=== PATIENT | female | born 1935 | race Caucasian/White ===

== ENCOUNTER 2016-06-15 13:46 | Emergency (ER) | payer MEDICARE, OTHER ==
[~2016-06-15 13:46] MED LIST: ASA5GR PO; BUSPAR15 M1 PO; CELEXA20 PO; CRESTOR20 MG PO; DETROLLA4 PO; ESTRADIOL1 MG PO; EXELON9.5T TOP; MOBIC7.5 PO; PREV30 PO; VIT 12; X25 PO
[2016-06-15 14:29] LABS: BASOPHILS 0.7 %; BASOPHILS ABSOLUTE 0.03 10/3/uL (0.0-0.16); EOSINOPHILS 3.9 %; EOSINOPHILS ABSOLUTE 0.18 10/3/uL (0.0-0.53); ER CBC TAT 0 Hrs 07 Mins; HEMOGLOBIN 11.4 g/dL (12.0-16.0); IMMATURE GRANULOCYTES 0.2 %; IMMATURE GRANULOCYTES ABSOLUTE 0.01 10/3/uL (0.0-0.11); LYMPHOCYTES 21.9 %; MEAN CORPUS HGB CONC 33.5 g/dL (32.0-36.0); MEAN CORPUSCULAR HEMOGLOB 30.2 pg (26.0-34.0); MEAN CORPUSCULAR VOLUME 89.9 fL (80-100); MEAN PLATELET VOLUME 10.3 fL (9.2-13.0); MONOCYTES 7.7 %; MONOCYTES ABSOLUTE 0.35 10/3/uL (0.21-1.20); NEUTROPHILS 65.6 %; PLATELET COUNT 127 10/3/uL (150-400); RBC DISTRIBUTION WIDTH 13.8 % (12.0-16.0); RED CELL COUNT 3.78 10/6/uL (4.0-5.6); WHITE BLOOD CELLS 4.6 10/3/uL (4.5-10.5)
[2016-06-15 14:30] LABS: MANUAL DIFF NO %
[2016-06-15 14:35] LABS: INTERNATIONAL NORMAL RATI 1.1 UNITS (-); PROTIME (NOT ORD) 14.3 SEC (12.0-14.5)
[2016-06-15 14:36] LABS: PARTIAL THROMBO TIME 33.3 SEC (22.5-37.2)
[2016-06-15 14:52] LABS: ALBUMIN 3.3 G/DL (3.5-5.0); CALCIUM, SERUM 9.3 MG/DL (8.5-10.4); CHLORIDE, SERUM 105 MMOL/L (96-112); CO2 (CARBON DIOXIDE) 28 MMOL/L (24-34); GFR AFRICAN AMERICAN 70 ML/MIN (>=60); GFR NON AFRICAN AMERICAN 61 ML/MIN (>=60); SGOT(AST) 16 U/L (5-40); SGPT(ALT) 14 U/L (5-65); SODIUM, SERUM 139 MMOL/L (135-148); TOTAL BILIRUBIN 0.3 MG/DL (0-1.2); TOTAL PROTEIN 7.6 G/DL (6.0-8.5); TROPONIN I <0.02 NG/ML (<0.05)
[2016-06-15 14:53] LABS: A/G RATIO 0.8 (0.7-1.9); ALKALINE PHOSPHATASE 66 U/L (45-117); BUN (BLOOD UREA NITROGEN) 17 MG/DL (6-23); GLOBULIN 4.3 G/DL (2.5-4.1); GLUCOSE, SERUM 91 MG/DL (60-99); POTASSIUM, SERUM 4.3 MMOL/L (3.5-5.3)
[2016-06-15 15:48] LABS: WBC (NOT ORDERED) (RFLEX) 0 (0-5)
[2016-06-15 16:06] LABS: ASCORBIC ACID (UR NOT ORDER) NEG (NEG); BILIRUBIN, URINE NEGATIVE (NEG); ER URINALYSIS TAT 0 Hrs 20 Mins; KETONE, URINE NEGATIVE (NEG); LEUKOCYTE ESTERASE(NOT OR NEG (NEG); NITRITE (URINE) NEG (NEG)
== END 2016-06-15 17:58 | disposition home or self-care (01) ==
LOC: ER 13:46
PROVIDERS: Physician Assistant
DX: R31.9 Hematuria, unspecified (principal); R53.1 Weakness; R53.83 Other fatigue; I10 Essential (primary) hypertension; K21.9 Gastro-esophageal reflux disease without esophagitis; F41.9 Anxiety disorder, unspecified; Z88.0 Allergy status to penicillin; Z88.2 Allergy status to sulfonamides; Z79.82 Long term (current) use of aspirin
CPT/HCPCS: 80053; 81001; 83735; 84443; 84484; 85025; 85610; 85730; 93005; 99285